=== PATIENT | male | born 1990 | race Caucasian/White ===

== ENCOUNTER 2016-11-16 09:42 | Inpatient (IN) | payer BC ==
[~2016-11-16] VITALS: Ht 175.3 cm; Wt 61.0 kg
[2016-11-16 10:33] LABS: BASOPHIL % 0.3 % (0-2); PLATELET COUNT 321 x10^3mcL (130-400); RED CELL DISTRIBUTION WIDTH 14.3 % (11.5-14.5)
[2016-11-16 10:45] LABS: CALCIUM 9.1 mg/dL (8.5-10.1); CARBON DIOXIDE 24.2 mmol/L (21-32); CHLORIDE SERUM 103 mmol/L (98-107); GFR1 > 60 mL/min; GLUCOSE SERUM 101 mg/dL (74-106); POTASSIUM SERUM 3.5 mmol/L (3.5-5.1); SODIUM SERUM 139 mmol/L (136-145)
[2016-11-16 10:50] LABS: ALBUMIN 4.4 g/dL (3.4-5.0); ALKALINE PHOSPHATASE 82 U/L (46-116); ALT/SGPT 21 U/L (16-63); AST/SGOT 19 U/L (15-37); BILIRUBIN TOTAL 0.55 mg/dL (0.20-1.00); LIPASE 101 IU/L (73-393); TOTAL PROTEIN, SERUM 7.8 g/dL (6.4-8.2)
--- NOTE | 2016-11-16 10:56 | NUR ---
PT MEDICATED PER MD ORDERS SEE EMAR.
--- NOTE | 2016-11-16 11:00 | NUR ---
PT PRESENTS TO ED WITH C/O GENERALIZED ABD PAIN WITH N/V SINCE 0700 THIS AM. PT STATES HE HAS A HX OF KIDNEY STONES. PT AAOX4 NO DISTRESS ABD SOFT NON DISTENDED. PT GOWNED ON CM NO DISTRESS WILL MONITOR
--- NOTE | 2016-11-16 13:47 | NUR ---
PT MEDICATED PER MD ORDERS SEE EMAR. PT ON CM NO DISTRESS WILL CONTINUE TO MONITOR
--- NOTE | 2016-11-16 14:32 | NUR ---
PT C/O DAWKINS, DR ARCE MADE AWARE. NS BOLUS INFUSION STARTED. PT SITTING IN BED NO DISTRESS WILL CONTINUE TO MONITOR
--- NOTE | 2016-11-16 15:29 | NUR ---
REPORT GIVEN TO PATTERNMAKER BENCHFRANKO RESUMING CARE OF PT IN TELE FLOOR
--- NOTE | 2016-11-16 15:46 | NUR ---
PT TRANSPORTED TO TELE FLOOR BY SHANNON GALLO AND EMT. FRANKO GALLO RESUMING CARE OF PT IN TELE FLOOR.
--- NOTE | 2016-11-16 15:55 | NUR ---
RECEIVED THE PATIENT FROM ER DEPT VIA [facility]; THE PATIENT AMBULATED TO THE BED WITH STEADY GAIT. PATIENT WAS ORIENTED TO PERSON, PLACE AND TIME. DENIED SHORTNESS OF BREATH. PATIENT C/O NAUSEA AND EPISODES OF SHARP PAIN TO RIGHT SIDE OF ABDOMEN AND RIGHT FLANK; THE PAIN RELEASED WHEN THE PATIENT AMBULATED IN THE ROOM. WILL MEDICATE FOR PAIN AND NAUSEA. H/L NOTED TO RAC. REORIENTED PATIENT TO ROOM AND EQUIPMENT. VS CHECKED. ASSESSMENT WAS IMPLEMENTED. CALL LIGHT WITHIN REACH. SIDE RAILS UPX2.
[2016-11-16 16:00] VITALS: BP 147/91
[2016-11-16 16:04] LABS: CHOLESTEROL/HDL RATIO 2.8; MAGNESIUM 1.9 mg/dL (1.8-2.4); PHOSPHOROUS 1.6 mg/dL (2.5-4.9)
[2016-11-16 16:09] LABS: microscopic required? YES; urine erythrocyte 3+ (NEGATIVE)
[2016-11-16 16:18] LABS: FREE T4 1.45 ng/dL (0.76-1.46); FREE THYROXINE INDEX 4.1 ug/dL (1.4-4.5); T4(THYROXINE) 10.4 ug/dL (4.7-13.3)
[2016-11-16 16:22] LABS: T3 TOTAL 1.41 ng/mL
--- NOTE | 2016-11-16 16:45 | NUR ---
PATIENT DENIED SMOKING BUT STATED USED MARIJUANA COUPLE OF TIMES.
--- NOTE | 2016-11-16 18:46 | NUR ---
THE PATIENT STATED FEELING MUCH BETTER NOW AND ABLE TO REST IN BED AFTER DILAUDID 0.5 MG IVP WAS GIVEN TO THE PATIENT AT 1717 PM. INSTRUCTED THE PATIENT NPO ORDER AND WAIT FOR DR. MERRILL, UROLOGIST TO CONSULT.
[2016-11-16 18:57] LABS: AMPHETAMINE QUAL UR NONE DETECTED (NEG <=1000)
--- NOTE | 2016-11-16 19:30 | NUR ---
RECEIVED REPORT FROM SABINO ABDUL. PT RESTING IN BED REPORTING IN SEVERED R FLANK AND ABD PAIN. WILL MEDICATE PER PRN ORDER. AAOX4. DENIES OF DAWKINS/DIZZINESS. M/S PT. DENIES OF ANY CHEST DISCOMFORT. PER PULSES STRONG. NEG ON EDEMA. IN RA WITH SAT OF 100%. BREATHING EVENLY AND UNLABORED. NO SOB NOTED. LUNGS CTA. ABD SOFT AND FLAT. LAST BM TODAY DIARRHEA PER PT. VOIDS FREELY. DENIES PAIN IN URINATION BUT ADMITS TO URGENCY WITH NO OUTPUT AT TIMES. AMBULATES STEADILY. SKIN DRY AND INTACT. IV ON RAC PATENT. SAFETY MEASURES ENSURED. INSTRUCTED PT TO USE CALL LIGHT FOR ANY NEEDS/ASSISTANCE. CALL LIGHT WITHIN REACH. WILL CONT TO MONITOR PT.
--- NOTE | 2016-11-16 19:33 | NUR ---
DR. SCOTT-RESIDENT WAS NOTIFIED OF THE PATIENT'S PHOS LEVEL 1.6. NEW ORDER WAS RELEASED. NOCS WILL CARRY OUT THE ORDER.
[2016-11-16 21:49] VITALS: BP 135/72
[2016-11-16 21:50] VITALS: BP 159/71
--- NOTE | 2016-11-17 05:16 | NUR ---
PT SLEPT COMFORTABLY THROUGH OUT THE NIGHT. WAS IN NO ACUTE DISTRESS OR DISCOMFORT. SAFETY MEASURES WERE ENSURED. PAIN MANAGEMENT ENFORCED. CALL LIGHT WITHIN REACH.
[2016-11-17 05:33] VITALS: BP 103/63
[2016-11-17 06:11] LABS: BASOPHIL % 0.4 % (0-2); PLATELET COUNT 250 x10^3mcL (130-400); RED CELL DISTRIBUTION WIDTH 14.5 % (11.5-14.5)
[2016-11-17 06:46] LABS: CALCIUM 8.3 mg/dL (8.5-10.1); CARBON DIOXIDE 27.7 mmol/L (21-32); CHLORIDE SERUM 106 mmol/L (98-107); CREATININE SERUM 0.9 mg/dL (0.7-1.3); GFR1 > 60 mL/min; GLUCOSE SERUM 96 mg/dL (74-106); MAGNESIUM 1.8 mg/dL (1.8-2.4); PHOSPHOROUS 3.9 mg/dL (2.5-4.9); SODIUM SERUM 140 mmol/L (136-145)
--- NOTE | 2016-11-17 08:00 | NUR ---
PT AWAKE AND ALERT. TEMP 98.7. MED SURG PT. RESP 18 EVEN. BREATH SOUNDS CLEAR. NO COUGH OR SOB. PULSE OX 98% RA. ABD SOFT, BOWEL TONES PRESENT. LBM 6-6-17 LOOSE. REPORTS "PAIN PILL HELPED THIS AM PAIN NOW DOWN TO 3/10." PT RECEIVED NORCO AT 0552 WITH GOOD EFFECT. PT VOIDING QS. DENIES BURNING. CONTINUE TO STRAIN ALL URINE FOR STONE. PT VERBALIZED UNDERSTANDING. IV PATENT RAC INFUSING NORMAL SALINE 125CC/HR. NPO AT THIS TIME PENDING DR LUNA MEDICAL ROUNDS THIS AM. NO EDEMA. PULSES PRESENT. SCD IN PLACE. SIDE RAILS UP X2. CALL LIGHT IN REACH.
--- NOTE | 2016-11-17 09:10 | NUR ---
DR LUNA AND MEDICAL TEAM IN ON ROUNDS. DISCUSSED WITH PT KIDNEY STONE ISSUE. PT AGREES WITH NEED FOR STENT PLACEMENT WITH DR DUNLAP. DR POWERS NOTIFY DR DUNLAP OF PTS DECISION. REMAINS NPO AT THIS TIME.
[2016-11-17 10:24] VITALS: BP 116/57
--- NOTE | 2016-11-17 12:45 | NUR ---
PT RESTING. CONTINUES NPO AWAITING DR DUNLAP. IV CONTINUES PATENT. REPORTS "DOING OK RIGHT NOW, PAIN 08/20. I AM GETTING HUNGRY." CALL LIGHT IN REACH.
--- NOTE | 2016-11-17 16:00 | NUR ---
DIET ADVANCED TO REGULAR. WILL BE NPO AFTER MIDNIGHT FOR POSSIBLE PROCEDURE. IV CONTINUES PATENT. DENIES PAIN. CONTINUES TO STRAIN URINE FOR STONE.
[2016-11-17 17:07] VITALS: BP 113/69
--- NOTE | 2016-11-17 18:24 | NUR ---
PT RESTING. TOLERATED DIET WELL. NO C/O PAIN AT THIS TIME. IV PATENT 125CC/HR. CALL LIGHT IN REACH.
--- NOTE | 2016-11-17 18:49 | NUR ---
PT REPORTS "I THINK I ATE SOMETHING TO HEAVY FOR MY STOMACH. I NEED A PAIN PILL 11/20." MED WITH NORCO ORDERED. CALL LIGHT IN REACH.
--- NOTE | 2016-11-17 19:50 | NUR ---
PT CURRENTLY RESTING IN BED, NO ACUTE DISTRESS. A/O X4. NO TELE, MED/SURG. DENIES CHEST PAIN. PULSES PALPABLE IN ALL EXTREMITIES, NO EDEMA NOTED. LUNG SOUNDS CTA BILATERALLY, NO RESPIRATORY DISTRESS NOTED. BOWEL SOUNDS ACTIVE, LAST BM 11/16/16, DIARRHEA. PT C/O ABD PAIN 08/20, MEDICATED PER EMAR. STRAINING URINE, PT DENIES PAIN WHILE URINATING AT THIS TIME. AMBULATORY. SKIN INTACT. IV PATENT AND INTACT. BED IN LOWEST POSITION, SIDE RAILS UP X2, SCDS IN PLACE, CALL LIGHT WITHIN REACH. WILL CONTINUE TO MONITOR.
[2016-11-17 22:05] VITALS: BP 119/78
--- NOTE | 2016-11-18 01:27 | NUR ---
PT CURRENTLY RESTING IN BED, NO ACUTE DISTRESS. WILL CONTINUE TO MONITOR.
[2016-11-18 06:06] VITALS: BP 107/63
--- NOTE | 2016-11-18 06:15 | NUR ---
PT SLEPT PERIODICALLY THROUGHOUT NIGHT, NO ACUTE DISTRESS. ALL NEEDS MET AND ATTENDED TO. NO SIGNIFICANT CHANGES. IV PATENT AND INTACT. BED IN LOWEST POSITION, SIDE RAILS UP X2, SCDS IN PLACE, CALL LIGHT WITHIN REACH. WILL ENDORSE CARE TO ONCOMING NURSE.
[2016-11-18 06:51] LABS: BASOPHIL % 0.4 % (0-2); PLATELET COUNT 255 x10^3mcL (130-400); RED CELL DISTRIBUTION WIDTH 14.3 % (11.5-14.5)
[2016-11-18 07:36] LABS: CALCIUM 8.8 mg/dL (8.5-10.1); CARBON DIOXIDE 30.1 mmol/L (21-32); CHLORIDE SERUM 105 mmol/L (98-107); CREATININE SERUM 0.9 mg/dL (0.7-1.3); GFR1 > 60 mL/min; GLUCOSE SERUM 89 mg/dL (74-106); POTASSIUM SERUM 4.1 mmol/L (3.5-5.1); SODIUM SERUM 141 mmol/L (136-145)
[2016-11-18 07:37] LABS: MAGNESIUM 2.2 mg/dL (1.8-2.4)
--- NOTE | 2016-11-18 07:40 | NUR ---
A/O X4. CLEAR SPEECH. CLEAR SPEECH. ON MEDSURG HR 62. RADIAL AND PEDAL PULSES PALPABLE. NO EDEMA OR SWELLING NOTED. <3 SECS CAP REFILL. SCDS IN PLACED. ON RA SAT 100%. BREATHING EVEN AND UNLABORED. PREVIOUS REPORTS OF DIARRHEA. VOIDING ADEQUATELY URINE CURRENTLY BEING STRAINED . AMBULATORY WITH STEADY GAIT. NO SKIN TEAR OR OPEN WOUND. DENIES PAIN THIS TIME. IV SITE INTACT ON RAC. NS INFUSING WELL AT 125ML/HR. WILL CONTINUE TO MONITOR. CALL LIGHT WITHIN REACH.
--- NOTE | 2016-11-18 08:38 | NUR ---
TOOK MEDS WITHOUT DIFFICULTY. DENIES PAIN AT THIS TIME.
--- NOTE | 2016-11-18 09:10 | NUR ---
Pt AWARE OF NPO STATUS FOR 1600 PROCEDURE/SX.
[2016-11-18 09:43] VITALS: BP 108/68
--- NOTE | 2016-11-18 12:01 | NUR ---
Pt RESTING COMFORTABLY. USING CELLULAR DEVICE.
--- NOTE | 2016-11-18 13:20 | NUR ---
RESTING COMFORTABLY. NO DISTRESS NOTED. WILL CONTNIUE TO MONITOR.
[2016-11-18 14:07] VITALS: BP 132/75
--- NOTE | 2016-11-18 14:40 | NUR ---
USING CELLULAR DEVICE. WILL CONTINUE TO MONITOR.
--- NOTE | 2016-11-18 15:35 | NUR ---
PROVIDED CHG WIPES FOR SX. VERBALIZES UNDERSTANDING.
--- NOTE | 2016-11-18 15:45 | NUR ---
Pt WENT DOWN FOR PROCEDURE.
[2016-11-18 18:27] VITALS: BP 125/82
--- NOTE | 2016-11-18 18:27 | NUR ---
Pt CAME BACK FROM PROCEDURE. Pt A/OX4. DENIES PAIN AT THIS TIME. NO DISTRESS NOTED. SEE VS.
--- NOTE | 2016-11-18 19:32 | NUR ---
PT CURRENTLY RESTING IN BED, NO ACUTE DISTRESS. A/O X4. NO TELE, MED/SURG. DENIES CHEST PAIN. PULSES PALPABLE IN ALL EXTREMITIES, NO EDEMA NOTED. LUNG SOUNDS CTA BILATERALLY. BOWEL SOUNDS ACTIVE, LAST BM 11/16/16, DIARRHEA. STRAINING URINE. AMBULATORY. SKIN INTACT. PT STATES ABD DISCOMFORT, 2/10 PAIN, DENIES PAIN MEDICATION AT THIS TIME. IV PATENT AND INTACT. BED IN LOWEST POSITION, SIDE RAILS UP X2, SCDS IN PLACE, CALL LIGHT WITHIN REACH. WILL CONTINUE TO MONITOR.
[2016-11-18 22:02] VITALS: BP 1045/85
--- NOTE | 2016-11-19 01:49 | NUR ---
PT CURRENTLY RESTING IN BED, NO ACUTE DISTRESS. WILL CONTINUE TO MONITOR.
[2016-11-19 05:27] VITALS: BP 110/59
[2016-11-19 05:30] VITALS: BP 110/59
[2016-11-19 06:05] LABS: BASOPHIL % 0.3 % (0-2); PLATELET COUNT 266 x10^3mcL (130-400); RED CELL DISTRIBUTION WIDTH 14.1 % (11.5-14.5)
[2016-11-19] MEDS ORDERED: LEVOFLOXACIN250 MG PO (06:15)
[2016-11-19] MEDS ORDERED: LAC PO (06:17)
[2016-11-19] MEDS ORDERED: COLACE100 MG PO (06:17)
[2016-11-19] MEDS ORDERED: NOR10T PO (06:17)
[2016-11-19] MEDS ORDERED: PYR200 PO (06:19)
[2016-11-19 06:22] LABS: CALCIUM 8.8 mg/dL (8.5-10.1); CARBON DIOXIDE 27.3 mmol/L (21-32); CHLORIDE SERUM 102 mmol/L (98-107); CREATININE SERUM 0.8 mg/dL (0.7-1.3); GFR1 > 60 mL/min; GLUCOSE SERUM 89 mg/dL (74-106); MAGNESIUM 2.1 mg/dL (1.8-2.4); PHOSPHOROUS 4.7 mg/dL (2.5-4.9); POTASSIUM SERUM 3.6 mmol/L (3.5-5.1); SODIUM SERUM 139 mmol/L (136-145)
--- NOTE | 2016-11-19 06:39 | NUR ---
PT SLEPT PERIODICALLY THROUGHOUT NIGHT, NO ACUTE DISTRESS. ALL NEEDS MET AND ATTENDED TO. NO SIGNIFICANT CHANGES. IV PATENT AND INTACT. MEDICATED PAIN PER EMAR. BED IN LOWEST POSITION, SIDE RAILS UP X2, SCDS IN PLACE, CALL LIGHT WITHIN REACH. WILL ENDORSE CARE TO ONCOMING NURSE.
--- NOTE | 2016-11-19 07:53 | NUR ---
PT SEEN, ASLEEP BUT EASILY AROUSABLE, ALERT AND ORIENTED, DENIES HEADACHE OR DIZZINESS, BREATHING EVEN AND UNLABORED, NO SOB, LUNG SOUNDS CLEAR, ON ROOM AIR WITH NO RESP DISTRESS NOTED, IS AT BEDSIDE, IVF INFUSING WELL, PULSES PALPABLE, NO EDEMA NOTED, AMBULATORY WITH STEADY GAIT, ABD SOFT AND FLAT WITH ACTIVE BS, NO BM AT THIS TIME, DENIES ABD PAIN, S/P CYSTOCOPY WITH STENT PLACEMENT WITH PINKISH URINE, NO DISTRESS NOTED, WILL KEEP TO MONITOR.
[2016-11-19] MEDS ORDERED: TAMSULOSIN HYD0.4 M1 PO (09:39)
[2016-11-19 10:05] VITALS: BP 120/76
[2016-11-19 10:46] VITALS: BP 120/76
--- NOTE | 2016-11-19 12:25 | NUR ---
DISCHARGE INSTRUCTION AND RX GIVEN, PT VERBALIZED UNDERTANDING, PT STATED THAT HE WILL LEAVE AFTER LUNCH AND ALSO WAITING FOR A RIDE AT THIS TIME.
--- NOTE | 2016-11-19 13:44 | NUR ---
IV REMOVED. PT ESCORTED DOWN TO DISCHARGE OFFICE IN STABLE CONDITION
== END 2016-11-19 13:40 | disposition home or self-care (01) | DRG 669 ==
LOC: ED 09:42 → MU 14:27
PROVIDERS: Emergency Medicine; ADMIT Family Medicine
PROC: 0TC68ZZ Extirpation of Matter from Right Ureter, Via Natural or Artificial Opening Endoscopic (ICD-10-PCS; principal; 2016-11-19)
PROC: 0T768DZ Dilation of Right Ureter with Intraluminal Device, Via Natural or Artificial Opening Endoscopic (ICD-10-PCS; 2016-11-19)
DX: N13.2 Hydronephrosis with renal and ureteral calculous obstruction (principal); Z68.1 Body mass index [BMI] 19.9 or less, adult; N17.0 Acute kidney failure with tubular necrosis; K57.30 Diverticulosis of large intestine without perforation or abscess without bleeding; F12.10 Cannabis abuse, uncomplicated; E87.6 Hypokalemia
CPT/HCPCS: 83880; 84439; 94150; C1769; C2625; G0480; J0696; J1170; J1885; J1956; J2270; J2405; J3010; J7030; Q0092; Q9967

== ENCOUNTER 2018-02-16 08:14 | Emergency (ER) | payer BC ==
[~2018-02-16] VITALS: Ht 172.7 cm; Wt 56.2 kg
[~2018-02-16 08:14] MED LIST: COLACE100 MG PO; LAC PO; LEVOFLOXACIN250 MG PO; NOR10T PO; PYR200 PO; TAMSULOSIN HYD0.4 M1 PO
[2018-02-16 08:19] VITALS: Ht 172.7 cm; Wt 56.2 kg
[2018-02-16 09:54] LABS: CALCIUM 9.4 mg/dL (8.5-10.1); CHLORIDE SERUM 101 mmol/L (98-107); CREATININE SERUM 0.9 mg/dL (0.7-1.3); GFR1 > 60 mL/min; GLUCOSE SERUM 126 mg/dL (74-106); POTASSIUM SERUM 3.9 mmol/L (3.5-5.1); SODIUM SERUM 138 mmol/L (136-145)
[2018-02-16 09:56] LABS: BASOPHIL % 0.1 % (0-2); PLATELET COUNT 362 x10^3mcL (130-400); RED CELL DISTRIBUTION WIDTH 13.5 % (11.5-14.5)
[2018-02-16 09:58] LABS: ALKALINE PHOSPHATASE 85 U/L (46-116); ALT/SGPT 20 U/L (16-63); AMYLASE 73 U/L (25-115); AST/SGOT 28 U/L (15-37); BILIRUBIN TOTAL 0.32 mg/dL (0.20-1.00); LIPASE 169 IU/L (73-393)
[2018-02-16 09:59] LABS: microscopic required? YES; urine erythrocyte NEGATIVE (NEGATIVE)
[2018-02-16 10:10] LABS: AMPHETAMINE QUAL UR NONE DETECTED (See below)
[2018-02-16 12:08] VITALS: BP 111/72
== END 2018-02-16 12:08 | disposition home or self-care (01) ==
LOC: ED 08:14
PROVIDERS: Emergency Medicine
DX: R11.2 Nausea with vomiting, unspecified (principal); R19.7 Diarrhea, unspecified; R10.9 Unspecified abdominal pain
CPT/HCPCS: J1630; J2060; J7030

== ENCOUNTER 2018-05-11 08:00 | Emergency (ER) | payer BC ==
[~2018-05-11] VITALS: Ht 172.7 cm; Wt 55.1 kg
[2018-05-11 08:38] LABS: BASOPHIL % 0.3 % (0-2); PLATELET COUNT 362 x10^3mcL (130-400); RED CELL DISTRIBUTION WIDTH 13.7 % (11.5-14.5)
[2018-05-11 08:55] LABS: CALCIUM 9.6 mg/dL (8.5-10.1); CARBON DIOXIDE 27.4 mmol/L (21-32); CHLORIDE SERUM 100 mmol/L (98-107); CREATININE SERUM 1.1 mg/dL (0.7-1.3); GFR1 > 60 mL/min; GLUCOSE SERUM 101 mg/dL (74-106); SODIUM SERUM 140 mmol/L (136-145)
[2018-05-11 08:59] LABS: ALBUMIN 4.8 g/dL (3.4-5.0); ALKALINE PHOSPHATASE 80 U/L (46-116); ALT/SGPT 30 U/L (16-63); AST/SGOT 33 U/L (15-37); BILIRUBIN TOTAL 1.16 mg/dL (0.20-1.00); LIPASE 86 IU/L (73-393)
[2018-05-11 09:13] LABS: TOTAL PROTEIN, SERUM 8.7 g/dL (6.4-8.2)
[2018-05-11 10:01] VITALS: BP 101/54
== END 2018-05-11 10:47 | disposition home or self-care (01) ==
LOC: ED 08:00
PROVIDERS: Emergency Medicine
DX: R10.32 Left lower quadrant pain (principal); R11.2 Nausea with vomiting, unspecified; R19.7 Diarrhea, unspecified
CPT/HCPCS: J1885; J2550; J3010; J7030; Q0092

== ENCOUNTER 2020-03-06 13:09 | Emergency (ER) | payer OTHER ==
[~2020-03-06] VITALS: Ht 175.3 cm; Wt 65.8 kg
[2020-03-06 13:17] VITALS: BP 161/90; Ht 175.3 cm; Wt 65.8 kg
== END 2020-03-06 13:52 | disposition other institution (70) ==
LOC: ED 13:09
DX: R55 Syncope and collapse (principal); R42 Dizziness and giddiness; E86.0 Dehydration; Z13.9 Encounter for screening, unspecified; Z87.442 Personal history of urinary calculi